=== PATIENT | male | born 1970 | race Caucasian/White ===

== ENCOUNTER 2023-07-18 16:32 | Emergency (ER) | payer OTHER ==
[2023-07-18] MEDS: Sodium Chloride 0.9% 1,000 ML IV ONE (17:46)
[2023-07-18 17:48] LABS: BASOPHILS ABSOLUTE AUTO 0.03 K/uL (0.00-0.10); BASOPHILS PERCENT AUTO 0.3 % (0.1-1.3); EOSINOPHILS PERCENT AUTO 2.2 % (0.0-5.4); HEMOGLOBIN 14.7 g/dL (12.9-16.9); IMMATURE GRAN ABSOLUTE AUTO 0.03 K/uL (0.00-0.23); IMMATURE GRAN PERCENT AUTO 0.3 % (0.0-0.7); LYMPHOCYTES ABSOLUTE AUTO 2.87 K/uL (0.8-3.3); LYMPHOCYTES PERCENT AUTO 31.5 % (11.4-47.7); MEAN CORPUSCULAR HEMOGLOBIN 28.2 pg (31.6-35.5); MEAN CORPUSCULAR HGB CONC 34.2 g/dL (31.6-35.5); MEAN CORPUSCULAR VOLUME 82.4 fL (81.4-99.0); MONOCYTES PERCENT AUTO 5.5 % (3.3-12.6); NEUTROPHILS ABSOLUTE AUTO 5.47 K/uL (1.0-7.6); NEUTROPHILS PERCENT AUTO 60.2 % (40.0-78.1); PLATELET COUNT,PLT 245 K/uL (130-375); RED BLOOD CELL COUNT 5.22 M/uL (4.14-5.76); WHITE BLOOD CELL COUNT,WBC 9.1 K/uL (3.2-11.0)
[2023-07-18] MEDS: Sodium Chloride 0.9% 10 ML Syringe FLUSH PRN (17:49)
[2023-07-18 18:17] LABS: BLOOD UREA NITROGEN,BUN 21 mg/dL (7-18); CALCIUM 8.7 mg/dL (8.5-10.1); CARBON DIOXIDE,CO2 30 mmol/L (21-32); CHLORIDE,CL 102 mmol/L (100-108); CREATININE 1.2 mg/dL (0.8-1.3); EST CRCL DRUG DOSING (CG) 68.88 mL/min; ESTIMATED GFR 72 mL/min (>60); GLUCOSE RANDOM 143 mg/dL (74-106); POTASSIUM,K 4.1 mmol/L (3.6-5.2); SODIUM,NA 139 mmol/L (140-148)
[2023-07-18 18:18] LABS: ANION GAP 11.1 mmol/L (5.0-14.0); TSH ULTRASENSITIVE < 0.007 uIU/mL (0.358-3.740)
== END 2023-07-18 18:54 | disposition home or self-care (01) ==
LOC: JP.ED 16:32
DX: I95.1 Orthostatic hypotension (principal); Z86.16 Personal history of COVID-19; Z79.899 Other long term (current) drug therapy
CPT/HCPCS: 36415; 80048; 83735; 84443; 85025; 93005; 93010; 96360; 99283; 99284; J3490; J7030